=== PATIENT | male | born 1960 | race Caucasian/White ===

== ENCOUNTER 2019-05-20 08:37 | Emergency (ER) | payer OTHER ==
[~2019-05-20] VITALS: Ht 188 cm; Wt 89.8 kg
[~2019-05-20 08:37] MED LIST: ASPI81CH PO; Augmentin 875-1 EACH PO; CIPRO500 MG PO; FISH OIL 1,0001 EAC1 PO; Flagyl500 MG PO; GLUCOSAMINE PO; MAGNESIUM100 MG PO; MILK THISTLE; Norco 5-325 Ta1 EACH PO; SIMV10 PO; Zofran Odt4 MG SL; [UNRECOGNIZED DRUG - OTHER] PO
[2019-05-20 09:22] LABS: BASOPHILS ABSOLUTE AUTO 0.03 K/mm3 (0.00-0.23); BASOPHILS PERCENT AUTO 1 % (0-2); EOSINOPHILS ABSOLUTE AUTO 0.08 K/mm3 (0.00-0.68); EOSINOPHILS PERCENT AUTO 2 % (0-6); Hematocrit 50.2 % (37.0-53.0); Hemoglobin 16.6 g/dL (13.5-17.5); IMMATURE GRAN ABSOLUTE AUTO 0.01 K/mm3 (0.00-0.10); IMMATURE GRAN PERCENT AUTO 0 % (0-1); LYMPHOCYTES ABSOLUTE AUTO 1.16 K/mm3 (0.84-5.20); LYMPHOCYTES PERCENT AUTO 22 % (21-46); MONOCYTES ABSOLUTE AUTO 0.41 K/mm3 (0.16-1.47); MONOCYTES PERCENT AUTO 8 % (4-13); Mean Corpuscular HGB Conc 33.1 g/dL (31.5-36.5); Mean Corpuscular Volume 97 fL (80-100); Mean Platelet Volume 10.6 fL (9.1-12.4); NEUTROPHILS ABSOLUTE AUTO 3.71 K/mm3 (1.96-9.15); NEUTROPHILS PERCENT AUTO 69 % (41-73); Platelet Count 154 K/mm3 (150-400); RDW Standard Deviation 46.6 fL (35.1-46.3); Red Blood Cell Count 5.18 M/mm3 (4.30-5.90)
[2019-05-20 09:28] LABS: Alanine Aminotransfer (ALT/SGP 28 U/L (12-78); Albumin/Globulin Ratio 1.3 (0.8-1.8); Alk Phos 57 U/L (50-136); Anion Gap 4 mmol/L (6-16); Aspartate Aminotrans (AST/SGOT 20 U/L (12-37); Bilirubin, Total 0.9 mg/dL (0.1-1.0); Blood Urea Nitrogen 13 mg/dL (8-24); Bun/Creatinine Ratio 17.6 (12.0-20.0); CO2, Blood 29 mmol/L (21-32); Chloride, Blood 109 mmol/L (98-108); Creatinine, Blood 0.74 mg/dL (0.60-1.20); Glomerular Filtration Rate >60 (60-); Glucose, Blood 86 mg/dL (70-99); Sodium, Blood 142 mmol/L (136-145)
[2019-05-20] MEDS ORDERED: FISH OIL 1,2001 EAC1 PO (09:29)
[2019-05-20] MEDS ORDERED: Zocor20 MG PO (09:29)
[2019-05-20] MEDS ORDERED: GLUCOSAMINE CH1 EAC3 PO (09:30)
[2019-05-20] MEDS ORDERED: Aspir 8181 MG PO (09:31)
[2019-05-20 10:57] LABS: Source, Urine Voided
[2019-05-20 11:00] LABS: Bilirubin, Urine Neg (Neg); Blood, Urine Neg (Neg); Glucose Qualitative, Urine Neg (Neg); Ketones, Urine Neg (Neg); Leukocyte Esterase, Urine Neg (Neg); Nitrite, Urine Neg (Neg); Protein, Urine Neg (Neg); Urobilinogen, Urine NORM (Normal)
[2019-05-20 11:04] LABS: Appearance, Urine Clear (Clear); Color, Urine Yellow (P-Yellow)
[2019-05-20] MEDS ORDERED: Norco 5-325 Ta1 EACH PO (12:08)
== END 2019-05-20 12:28 | disposition home or self-care (01) ==
LOC: ER 08:37
PROVIDERS: Emergency Medicine
DX: R10.9 Unspecified abdominal pain (principal); Z79.82 Long term (current) use of aspirin; Z79.899 Other long term (current) drug therapy
CPT/HCPCS: 36415; 74176; 80053; 81003; 83690; 85025; 99284-25

== ENCOUNTER → 2019-05-21 | Outpatient (CLI) | payer OTHER ==
[~2019-05-21] MED LIST changes: +Aspir 8181 MG PO; +FISH OIL 1,2001 EAC1 PO; +GLUCOSAMINE CH1 EAC3 PO; +Zocor20 MG PO
[2019-05-21 12:53] LABS: BASOPHILS ABSOLUTE AUTO 0.03 K/mm3 (0.00-0.23); BASOPHILS PERCENT AUTO 1 % (0-2); EOSINOPHILS ABSOLUTE AUTO 0.07 K/mm3 (0.00-0.68); EOSINOPHILS PERCENT AUTO 1 % (0-6); Hematocrit 47.7 % (37.0-53.0); Hemoglobin 16.3 g/dL (13.5-17.5); IMMATURE GRAN ABSOLUTE AUTO 0.01 K/mm3 (0.00-0.10); IMMATURE GRAN PERCENT AUTO 0 % (0-1); LYMPHOCYTES ABSOLUTE AUTO 1.51 K/mm3 (0.84-5.20); LYMPHOCYTES PERCENT AUTO 29 % (21-46); MONOCYTES PERCENT AUTO 8 % (4-13); Mean Corpuscular HGB 31.6 pg (26.0-34.0); Mean Corpuscular HGB Conc 34.2 g/dL (31.5-36.5); Mean Platelet Volume 10.4 fL (9.1-12.4); NEUTROPHILS ABSOLUTE AUTO 3.19 K/mm3 (1.96-9.15); NEUTROPHILS PERCENT AUTO 61 % (41-73); Platelet Count 161 K/mm3 (150-400); RDW Coefficient Variation 13.2 % (11.7-14.2); RDW Standard Deviation 44.1 fL (35.1-46.3); Red Blood Cell Count 5.16 M/mm3 (4.30-5.90); White Blood Cell Count 5.21 K/mm3 (4.00-11.30)
[2019-05-21 13:04] LABS: Alanine Aminotransfer (ALT/SGP 32 U/L (12-78); Albumin/Globulin Ratio 1.3 (0.8-1.8); Alk Phos 57 U/L (40-126); Anion Gap 7 mmol/L (6-16); Aspartate Aminotrans (AST/SGOT 24 U/L (12-37); Bilirubin, Total 0.8 mg/dL (0.1-1.0); Blood Urea Nitrogen 12 mg/dL (8-24); Bun/Creatinine Ratio 13.2 (12.0-20.0); CO2, Blood 29 mmol/L (21-32); Calcium, Blood 8.8 mg/dL (8.5-10.1); Chloride, Blood 101 mmol/L (98-108); Creatinine, Blood 0.91 mg/dL (0.60-1.20); Globulin, Blood 3.1 g/dL (2.2-4.0); Glomerular Filtration Rate >60 (60-); Glucose, Blood 101 mg/dL (70-99); Potassium, Blood 3.7 mmol/L (3.5-5.5); Sodium, Blood 137 mmol/L (136-145); Total Protein, Blood 7.1 g/dL (6.4-8.2)
[2019-05-21 13:10] LABS: Mean Corpuscular Volume 92 fL (80-100)
== END | disposition home or self-care (01) ==
LOC: LAB SHORT 12:46 → LAB EV 12:46
PROVIDERS: Physician Assistant
DX: R10.31 Right lower quadrant pain (principal); R89.9 Unspecified abnormal finding in specimens from other organs, systems and tissues
CPT/HCPCS: 80053; 83690; 85025

== ENCOUNTER → 2020-01-19 | Outpatient (CLI) | payer OTHER ==
[2020-01-24 18:08] LABS: METANEPHRINE, UR 31 ug/L (Undefined)
== END ==
LOC: LAB 08:00 → LAB SHORT 08:00 → LAB FUT 01-17 14:25
PROVIDERS: Physician Assistant
DX: R03.0 Elevated blood-pressure reading, without diagnosis of hypertension (principal)
CPT/HCPCS: 81050; 83835

== ENCOUNTER 2025-10-26 08:00 | Day surgery (SDC) | payer OTHER ==
[~2025-10-26] VITALS: Ht 185.4 cm; Wt 96.2 kg
[~2025-10-26 08:00] MED LIST changes: +Dexamethasone Sod Phos 10 MG/ML 1ML VIAL ONE; +FentaNYL Citrate 50 MCG/ML 2 ML Injection ONE; +Ketorolac Tromethamine 30mg Vial ONE; +Lidocaine 1%-Epineph 1:100000 20 ML MDV ONE; +Midazolam HCl 1MG / ML 2ML Vial ONE; +Ondansetron HCl 2 MG / ML 2ML Vial ONE; +Sodium Bicarb 8.4% 1 MEQ/ML 50 ML Vial ONE
[2025-10-26] MEDS ORDERED: CeFAZolin Sodium 2,000 MG VIAL ONE (08:22)
[2025-10-26] MEDS ORDERED: Inderal40 MG PO (08:53)
[2025-10-26] MEDS ORDERED: TEMA15 PO (08:54)
[2025-10-26] MEDS ORDERED: DESV50 PO (08:54)
[2025-10-26] MEDS ORDERED: LATUDA20 M1 PO (08:54)
[2025-10-26] MEDS ORDERED: GABA300 PO (08:54)
[2025-10-26] MEDS ORDERED: LOSA25 PO (08:55)
[2025-10-26] MEDS ORDERED: TOPI50 PO (08:55)
[2025-10-26] MEDS ORDERED: Lidocaine 2%-Epineph 1:100000 20 ML MDV ONE (09:26)
[2025-10-26] MEDS ORDERED: ePHEDrine Sulfate 50 MG/ML 1ML Injection ONE (10:32)
[2025-10-26 11:26] VITALS: BP 120/75
== END 2025-10-26 11:56 | disposition home or self-care (01) ==
LOC: ORSCSDS 08:00
PROVIDERS: Orthopaedic Surgery
PROC: 0SBD4ZZ Excision of Left Knee Joint, Percutaneous Endoscopic Approach (ICD-10-PCS; principal; 2025-10-26 10:00)
DX: S83.242A Other tear of medial meniscus, current injury, left knee, initial encounter (principal); M67.52 Plica syndrome, left knee; M94.262 Chondromalacia, left knee; I10 Essential (primary) hypertension; E78.5 Hyperlipidemia, unspecified; G47.33 Obstructive sleep apnea (adult) (pediatric); M79.7 Fibromyalgia; Z79.899 Other long term (current) drug therapy
CPT/HCPCS: J0166; J0690; J1100; J1885; J2250; J2405; J2704; J3010; J7120